=== PATIENT | male | born 1970 | race Caucasian/White ===

== ENCOUNTER 2018-03-17 13:45 | Emergency (ER) | payer SELFPAY ==
[2018-03-17 14:17] VITALS: TEMP 98.3
--- NOTE | 2018-03-17 16:09 | PDOC ---
Attending Attestation - HPI HPI: 03/17/18 20:19 The patient is a 47 year old female, with a significant PMH of cocaine abuse and ETOH, who presents to the emergency department who wishes to go to detox. The patient states he usually drinks 1 liter of vodka per day (today he drank 1 L of vodka) and currently endorses associated symptoms of tactile sensation, SOB, 1 episode of non bilious non bloody emesis, nausea and chest pain located to the center of the chest , non radiating in nature. The patient reports his last rehab admission was 8 years ago. The patient denies headache and dizziness. Denies fever, chills, diarrhea and constipation. Denies dysuria, frequency, urgency and hematuria. Allergies: NKDA Past surgical history: None reported Social history: Denies tobacco use but admits to cocaine use (last night) PCP: None reported Documentation prepared by Edinson Valles, acting as medical records specialist for Madiha Beltre MD. - Physicial Exam PE: 03/17/18 20:19 GENERAL: Awake, alert, and fully oriented, in no acute distress HEAD: No signs of trauma EYES: PERRLA, EOMI, sclera anicteric, conjunctiva clear ENT: +Tongue fasciculations. Auricles normal inspection, hearing grossly normal , nares patent, oropharynx clear without exudates. NECK: Normal ROM, supple, no lymphadenopathy, JVD, or masses LUNGS: Breath sounds equal, clear to auscultation bilaterally. No wheezes, and no crackles HEART: Regular rate and rhythm, normal S1 and S2, no murmurs, rubs or gallops ABDOMEN: Soft, nontender, normoactive bowel sounds. No guarding, no rebound. No masses EXTREMITIES: Normal range of motion, no edema. No clubbing or cyanosis. No cords, erythema, or tenderness NEUROLOGICAL: Cranial nerves II through XII grossly intact. Normal speech, normal gait SKIN: Warm, Dry, normal turgor, no rashes or lesions noted. Documentation prepared by Edinson Valles, acting as medical records specialist for Madiha Beltre MD. <Edinson Valles - Last Filed: 03/17/18 20:19> - Medical Decision Making 03/17/18 20:32 Pt presents to the ED complaining of chest pain after using cocaine and mild ETOH withdrawal. Labs and EKG checked to rule out ACS and are negative. Patient is now chest pain free. Patient is requesting transfer to [facility]. Case discussed with [facility] who has accepted the patient., <Madiha Beltre - Last Filed: 03/17/18 21:02>
--- NOTE | 2018-03-17 16:30 | PDOC ---
History of Present Illness <Jazmyne Goodrich - Last Filed: 03/17/18 20:51> - General History Source: Patient Exam Limitations: Language Barrier - History of Present Illness Initial Comments: 03/17/18 19:38 47 yo M with a hx of ETOH and cocaine abuse presents to the emergency department with a desire to go to detox. Per the patient, his last drink was at 12 pm today. In the 24 hours prior, he drank 1 liter of vodka. His usual alcohol amount is 1 liter of vodka per day. He states he currently has tremors, nausea, and anxiety. Denies a hx of seizures, AH/VH/tactile hallucination, DTs, and anger. Concurrently, he developed chest pain at 12 pm that was located in the center of the chest, constant, 3/10, prickling sensation, without radiation , without aggravating and relieving factors with associative SOB. His last rehab admission was 8 years ago. He states he wants to go to detox this time because he can't do it alone. He states he had 1x vomiting episode earlier today that was NBNB. Denies the following: fever, chills, visual changes, headache, abdominal pain, dysuria, hematuria, diarrhea, hematochezia, and leg pain/swelling. Shx: None Meds: None Allergies: NKDA Social: Denies tobacco use. Last cocaine use last night. Uses cocaine intermittently when he drinks. <Cholo Colunga - Last Filed: 03/19/18 11:37> - General Chief Complaint: Alcohol intoxication Stated Complaint: ALCOHOL INTOXICATION Time Seen by Provider: 03/17/18 16:09 Past History <Jazmyne Goodrich - Last Filed: 03/17/18 20:51> - Past Medical History COPD: No - Immunization History Immunization Up to Date: Yes - Suicide/Smoking/Psychosocial Hx Smoking History: Never smoked Hx Alcohol Use: Yes (1 L vodka a day) Drug/Substance Use Hx: Yes (cocainne) <Cholo Colunga - Last Filed: 03/19/18 11:37> - Past Medical History Allergies/Adverse Reactions: Allergies Allergy/AdvReac Type Severity Reaction Status Date / Time No Known Allergies Allergy Verified 03/18/18 01:26 Home Medications: Ambulatory Orders NK [No Known Home Medication] 03/17/18 Review of Systems - Review of Systems Able to Perform ROS?: Yes Is the patient limited [place] proficient: No Constitutional: No: Chills, Diaphoresis, Fever HEENTM: No: Eye Pain, Recent change in vision, Ear Pain, Nose Pain, Throat Pain , Mouth Pain Respiratory: No: Cough, Shortness of Breath, Hemoptysis Cardiac (ROS): No: Chest Pain, Lightheadedness, Palpitations, Syncope, Chest Tightness ABD/GI: Yes: Nausea. No: Constipated, Diarrhea, Poor Appetite, Poor Fluid Intake, Rectal Bleeding, Vomiting, Tarry Stools : No: Burning, Dysuria, Hematuria, Urgency Musculoskeletal: No: Back Pain, Gout, Joint Pain, Neck Pain Integumentary: No: Dryness, Lesions, Lumps, Sweating Neurological: Yes: Tremors. No: Headache, Numbness, Tingling, Ataxia, Dizziness Psychiatric: No: Stressors Endocrine: No: Unexplained Weight Gain Hematologic/Lymphatic: No: Anemia <Cholo Colunga - Last Filed: 03/19/18 11:37> *Physical Exam - Vital Signs Last Vital Signs Temp Pulse Resp BP Pulse Ox 98.3 F 89 18 126/68 98 03/17/18 14:11 03/17/18 19:10 03/17/18 19:10 03/17/18 19:10 03/17/18 19:10 <Jazmyne Goodrich - Last Filed: 03/17/18 20:51> - Vital Signs Last Vital Signs Temp Pulse Resp BP Pulse Ox 98.3 F 93 H 18 124/79 96 03/17/18 14:11 03/17/18 14:11 03/17/18 14:11 03/17/18 14:11 03/17/18 14:11 - Physical Exam General Appearance: Yes: Nourished, Appropriately Dressed, Other (tremors ). No : Apparent Distress, Disheveled HEENT: positive: EOMI, DHEERAJ, Normal Voice, Symmetrical, Pharynx Normal, Hearing Grossly Normal. negative: Pale Conjunctivae, Scleral Icterus (R), Scleral Icterus (L), Muffled/Hoarse voice, Nasal Congestion, Sinus Tenderness, Excessive drooling Neck: positive: Trachea midline. negative: Tender, Lymphadenopathy (R), Lymphadenopathy (L), Tender lateral, Tender midline Respiratory/Chest: positive: Chest Tender, Lungs Clear, Normal Breath Sounds. negative: Respiratory Distress, Accessory Muscle Use, Crackles, Rales, Rhonchi, Stridor, Wheezing Cardiovascular: positive: Regular Rhythm, Regular Rate, S1, S2. negative: Systolic Murmur Gastrointestinal/Abdominal: positive: Normal Bowel Sounds, Flat, Soft. negative : Tender, Distended Lymphatic: negative: Adenopathy Musculoskeletal: positive: Normal Inspection. negative: CVA Tenderness, Vertebral Tenderness Extremity: positive: Normal Capillary Refill, Normal Inspection, Normal Range of Motion. negative: Tender Integumentary: positive: Normal Color, Dry, Warm. 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 negative: EOM Palsy, Facial Droop , Sensory Deficit <Cholo Colunga - Last Filed: 03/19/18 11:37> Moderate Sedation - Procedure Monitoring Vital Signs: Procedure Monitoring Vital Signs Temperature 98.3 F 03/17/18 14:11 Pulse Rate 89 03/17/18 19:10 Respiratory Rate 18 03/17/18 19:10 Blood Pressure 126/68 03/17/18 19:10 O2 Sat by Pulse Oximetry (%) 98 03/17/18 19:10 <Jazmyne Goodrich - Last Filed: 03/17/18 20:51> - Procedure Monitoring Vital Signs: Procedure Monitoring Vital Signs Temperature 98.3 F 03/17/18 14:11 Pulse Rate 93 H 03/17/18 14:11 Respiratory Rate 18 03/17/18 14:11 Blood Pressure 124/79 03/17/18 14:11 O2 Sat by Pulse Oximetry (%) 96 03/17/18 14:11 <Cholo Colunga - Last Filed: 03/19/18 11:37> ED Treatment Course - LABORATORY CBC & Chemistry Diagram: 03/17/18 17:45 03/17/18 17:45 - ADDITIONAL ORDERS Additional order review: Laboratory Results 03/17/18 03/17/18 03/17/18 17:45 17:45 17:45 Sodium 140 Potassium 4.0 Chloride 104 Carbon Dioxide 30 Anion Gap 6 L BUN 8 Creatinine 0.8 Creat Clearance w eGFR > 60 Random Glucose 108 H Calcium 8.6 Total Bilirubin 0.7 AST 61 H ALT 82 H Alkaline Phosphatase 85 Creatine Kinase 148 Troponin I < 0.02 Total Protein 8.2 Albumin 4.4 Urine Color Yellow Urine Appearance Clear Urine pH 7.0 D Ur Specific [place] 1.023 Urine Protein Negative Urine Glucose (UA) Negative Urine Ketones Negative Urine Blood Negative Urine Nitrite Negative Urine Bilirubin Negative Urine Urobilinogen 2.0 Ur Leukocyte Esterase Negative Opiates Screen Negative Methadone Screen Negative Barbiturate Screen Negative Phencyclidine Screen Negative Ur Amphetamines Screen Negative MDMA (Ecstasy) Screen Negative Benzodiazepines Screen Negative Cocaine Screen Positive A* U Marijuana (THC) Screen Negative Alcohol, Quantitative < 3.0 03/17/18 17:45 RBC 4.61 MCV 90.2 MCHC 36.0 H RDW 13.0 MPV 7.4 L Neutrophils % 76.1 Lymphocytes % 16.2 D Monocytes % 6.1 Eosinophils % 1.2 D Basophils % 0.4 - Medications Given in the ED: ED Medications Discontinued Medications Generic Name Dose Route Start Last Admin Trade Name Freq PRN Reason Stop Dose Admin Chlordiazepoxide HCl 50 mg 03/17/18 17:34 03/17/18 18:26 Librium - PO 03/17/18 17:35 50 mg ONCE ONE Administration <Jazmyne Goodrich - Last Filed: 03/17/18 20:51> - LABORATORY CBC & Chemistry Diagram: 03/17/18 17:45 03/17/18 17:45 <Cholo Colunga - Last Filed: 03/19/18 11:37> Medical Decision Making - Medical Decision Making 47 yo M with a hx of ETOH and cocaine abuse presents to the emergency department with a desire to go to detox. Per the patient, his last drink was at 12 pm today. Initial vitals: Initial Vital Signs Temp Pulse Resp BP Pulse Ox 98.3 F 93 H 18 124/79 96 03/17/18 14:11 03/17/18 14:11 03/17/18 14:11 03/17/18 14:11 03/17/18 14:11 Work up: ddx: alcohol withdrawal. concerns for chest pain given his recent use of cocaine yesterday and prolonged use of it. will get cbc, cmp, trops, urine analysis, urine tox, etoh levels, ekg, and cxr. Laboratory Tests 03/17/18 03/17/18 03/17/18 17:45 17:45 17:45 WBC 5.2 RBC 4.61 Hgb 15.0 Hct 41.6 MCV 90.2 MCH 32.4 MCHC 36.0 H RDW 13.0 Plt Count 159 MPV 7.4 L Absolute Neuts (auto) 4.0 Neutrophils % 76.1 Lymphocytes % 16.2 D Monocytes % 6.1 Eosinophils % 1.2 D Basophils % 0.4 Nucleated RBC % 0 Sodium 140 Potassium 4.0 Chloride 104 Carbon Dioxide 30 Anion Gap 6 L BUN 8 Creatinine 0.8 Creat Clearance w eGFR > 60 Random Glucose 108 H Calcium 8.6 Total Bilirubin 0.7 AST 61 H ALT 82 H Alkaline Phosphatase 85 Creatine Kinase 148 Troponin I < 0.02 Total Protein 8.2 Albumin 4.4 Urine Color Yellow Urine Appearance Clear Urine pH 7.0 D Ur Specific [place] 1.023 Urine Protein Negative Urine Glucose (UA) Negative Urine Ketones Negative Urine Blood Negative Urine Nitrite Negative Urine Bilirubin Negative Urine Urobilinogen 2.0 Ur Leukocyte Esterase Negative Opiates Screen Methadone Screen Barbiturate Screen Phencyclidine Screen Ur Amphetamines Screen MDMA (Ecstasy) Screen Benzodiazepines Screen Cocaine Screen U Marijuana (THC) Screen Alcohol, Quantitative < 3.0 03/17/18 17:45 WBC RBC Hgb Hct MCV MCH MCHC RDW Plt Count MPV Absolute Neuts (auto) Neutrophils % Lymphocytes % Monocytes % Eosinophils % Basophils % Nucleated RBC % Sodium Potassium Chloride Carbon Dioxide Anion Gap BUN Creatinine Creat Clearance w eGFR Random Glucose Calcium Total Bilirubin AST ALT Alkaline Phosphatase Creatine Kinase Troponin I Total Protein Albumin Urine Color Urine Appearance Urine pH Ur Specific [place] Urine Protein Urine Glucose (UA) Urine Ketones Urine Blood Urine Nitrite Urine Bilirubin Urine Urobilinogen Ur Leukocyte Esterase Opiates Screen Negative Methadone Screen Negative Barbiturate Screen Negative Phencyclidine Screen Negative Ur Amphetamines Screen Negative MDMA (Ecstasy) Screen Negative Benzodiazepines Screen Negative Cocaine Screen Positive A* U Marijuana (THC) Screen Negative Alcohol, Quantitative CXR did not show infiltrates or widened mediastinum. labs were within normal limits. trops were negative. urine toxicology showed positive cocaine. patient again re-iterated his desire to go to detox. he was given 50 mg of librium. Patient's alcohol level was <3. [facility] was contacted and they accepted the patient for admission. will transfer the patient via security. Dispo: Discharge <Cholo Colunga - Last Filed: 03/19/18 11:37> *DC/Admit/Observation/Transfer <Jazmyne Goodrich - Last Filed: 03/17/18 20:51> <Cholo Colunga - Last Filed: 03/19/18 11:37> Diagnosis at time of Disposition: Alcohol abuse - Discharge Dispostion Disposition: HOME Condition at time of disposition: Stable - Patient Instructions Printed Discharge Instructions: DI for Alcohol Abuse Additional Instructions: Present to [facility] for detox
[2018-03-17] MEDS ORDERED: chlordiazePOXIDE HCL 25 MG CAPSULE PO ONE (17:34)
[2018-03-17 18:14] LABS: BASO % 0.4 % (0-2.0); EOS % 1.2 % (0-4.5); HEMATOCRIT 41.6 % (35.4-49); LYMPH % 16.2 % (8-40); MCH 32.4 pg (25.7-33.7); MEAN CELL VOLUME 90.2 fl (80-96); MEAN PLT VOLUME 7.4 fl (7.5-11.1); MONO % 6.1 % (3.8-10.2); NEUT % 76.1 % (42.8-82.8); PLATELET COUNT 159 K/MM3 (134-434); RBC 4.61 M/mm3 (4.00-5.60); URINE APPEARANCE CLEAR; URINE BILIRUBIN NEGATIVE (<2.0 mg/dL); URINE COLOR YELLOW; URINE GLUCOSE (UA) NEGATIVE (NEGATIVE); URINE KETONE NEGATIVE (NEGATIVE); URINE LEUK ESTERASE NEGATIVE (NEGATIVE); URINE NITRITE NEGATIVE (NEGATIVE); URINE PROTEIN NEGATIVE (NEGATIVE); WHITE BLOOD COUNT 5.2 K/mm3 (4.0-10.0)
[2018-03-17] MEDS ORDERED: chlordiazePOXIDE HCL 25 MG CAPSULE ONE (18:29)
[2018-03-17 19:04] LABS: METHADONE, UR NEGATIVE ng/ml (CUTOFF=300); OPIATES, URI NEGATIVE ng/ml (CUTOFF=300); PHENCYCLIDINE,URINE NEGATIVE ng/ml (CUTOFF=25); URINE AMPHETAMINES NEGATIVE ng/ml (CUTOFF=500); URINE BARBITURATES NEGATIVE ng/ml (CUTOFF=200); URINE BENZODIAZEPINES NEGATIVE ng/ml (CUTOFF=200)
[2018-03-17 19:06] LABS: COCAINE, UR POSITIVE ng/ml (CUTOFF=300)
[2018-03-17 19:08] LABS: ALBUMIN 4.4 g/dl (3.4-5.0); ALK PHOS 85 U/L (45-117); ANION GAP 6 MMOL/L (8-16); BILIRUBIN,TOTAL 0.7 mg/dL (0.2-1); BLOOD UREA NITROGEN 8 mg/dL (7-18); CALCIUM 8.6 mg/dL (8.5-10.1); CHLORIDE 104 mmol/L (98-107); CO2 30 mmol/L (21-32); CREATININE 0.8 mg/dL (0.55-1.3); GLUCOSE,RANDOM 108 mg/dL (74-106); SGOT/AST 61 U/L (15-37); SGPT/ALT 82 U/L (13-61); SODIUM 140 mmol/L (136-145); TOT PROT 8.2 g/dl (6.4-8.2)
[2018-03-17 19:56] VITALS: BP 126/68; PULSE 89
--- NOTE | 2018-03-18 07:13 | EKG ---
Test Reason : Blood Pressure : / mmHG Vent. Rate : 081 BPM Atrial Rate : 081 BPM P-R Int : 148 ms QRS Dur : 098 ms QT Int : 384 ms P-R-T Axes : 050 -11 021 degrees QTc Int : 446 ms NORMAL SINUS RHYTHM NORMAL ECG WHEN COMPARED WITH ECG OF 24-APR-2016 20:19, NO SIGNIFICANT CHANGE WAS FOUND Confirmed by NURY HENRIQUEZ MD ([id number]) on 03/18/2018 7:13:12 AM Referred By: Confirmed By:NURY HENRIQUEZ MD
== END 2018-03-17 23:36 | disposition home or self-care (01) ==
LOC: JER 13:45
DX: F10.10 Alcohol abuse, uncomplicated (principal); F14.10 Cocaine abuse, uncomplicated
CPT/HCPCS: 36415; 71046-TC-FY; 80053; 80307; 81003; 82550; 84484; 85025; 93005; 93010; 99283-25

== ENCOUNTER 2018-03-17 23:54 | Inpatient (IN) | payer SELFPAY ==
--- NOTE | 2018-03-18 00:27 | HP ---
CIWA Score Nausea/Vomitin (x 1) Muscle Tremors: 3 Anxiety: 3 Agitation: 0-Normal Activity Paroxysmal Sweats: 1-Minimal Palms Moist Orientation: 1-Uncertain about Date Tacttile Disturbances: 0-None Auditory Disturbances: 0-None Visual Disturbances: 0-None Headache: 3-Moderate CIWA-Ar Total Score: 14 - Admission Criteria OASAS Guidelines: Admission for Medically Managed Detox: Requires at least one of the followin. CIWA greater than 12 2. Seizures within the past 24 hours 3. Delirium tremens within the past 24 hours 4. Hallucinations within the past 24 hours 5. Acute intervention needed for co occurring medical disorder 6. Acute intervention needed for co occurring psychiatric disorder 7. Severe withdrawal that cannot be handled at a lower level of care (continued vomiting, continued diarrhea, abnormal vital signs) requiring intravenous medication and/or fluids 8. Admission ROS S - HPI Chief Complaint: Alcohol withdrawal symptoms Allergies/Adverse Reactions: Allergies Allergy/AdvReac Type Severity Reaction Status Date / Time No Known Allergies Allergy Verified 03/17/18 14:11 History of Present Illness: 47 years old male who denies past medical history is seeking admission to detox. Patient states that his last detox was eight years ago in an a facility in the [place] and reports insignificant period of sobriety. He denies suicide attempt or suicidal ideation at this time. Exam Limitations: No Limitations - Ebola screening Have you traveled outside of the country in the last 21 days: No Have you had contact with anyone from an Ebola affected area: No Have you been sick,other than usual withdrawal symptoms: No Do you have a fever: No - Review of Systems Constitutional: Chills, Loss of Appetite, Malaise, Night Sweats, Changes in sleep EENT: reports: No Symptoms Reported Respiratory: reports: No Symptoms reported Cardiac: reports: No Symptoms Reported GI: reports: Poor Appetite, Poor Fluid Intake, Vomiting (x 1), Abdominal cramping : reports: No Symptoms Reported Musculoskeletal: reports: Back Pain, Muscle Pain, Muscle Weakness Integumentary: reports: Dryness Neuro: reports: Tremors Endocrine: reports: No Symptoms Reported Hematology: reports: No Symptoms Reported Psychiatric: reports: Mood/Affect Appropiate Other Systems: Reviewed and Negative Patient History - Patient Medical History Hx Anemia: No Hx Asthma: No Hx Chronic Obstructive Pulmonary Disease (COPD): No Hx Cancer: No Hx Cardiac Disorders: No Hx Congestive Heart Failure: No Hx Hypertension: No Hx Hypercholesterolemia: No Hx Pacemaker: No HX Cerebrovascular Accident: No Hx Seizures: No Hx Dementia: No Hx Diabetes: No Hx Gastrointestinal Disorders: No Hx Liver Disease: No Hx Genitourinary Disorders: No Hx Sexually Transmitted Disorders: No Hx Renal Disease (ESRD): No Hx Thyroid Disease: No Hx Human Immunodeficiency Virus (HIV): No (Negative ) Hx Hepatitis C: No Hx Depression: No Hx Suicide Attempt: No (Denies suicidal ideation at this time) Hx Bipolar Disorder: No Hx Schizophrenia: No - Patient Surgical History Past Surgical History: No - PPD History Previous Implant?: Yes (Patient reports PPD positive 9 years ago and does not remember if treated) Documented Results: Positive w/o proof PPD to be Administered?: No - Reproductive History Patient is a Female of Child Bearing Age (11 -55 yrs old): No (MALE) - Smoking Cessation Smoking history: Never smoked Have you smoked in the past 12 months: No Hx Chewing Tobacco Use: No Initiated information on smoking cessation: No - Substance & Tx. History Hx Alcohol Use: Yes Hx Substance Use: Yes Substance Use Type: Alcohol, Cocaine Hx Substance Use Treatment: Yes (Does not remember treatment facility in the [place] years ago) - Substances Abused Alcohol Route: Oral Frequency: Daily Amount used: VODKA - 1 LITER Age of first use: 24 Date of Last Use: 03/17/18 Cocaine Route: Smoking Frequency: Daily Amount used: $20- $50 DAILY Age of first use: 32 Date of Last Use: 03/17/18 Family Disease History - Family Disease History Family History: Denies Admission Physical Exam [facility] - Physical General Appearance: Yes: Moderate Distress, Irritable, Anxious HEENTM: Yes: EOMI, Normal ENT Inspection, Normal Voice, DHEERAJ Respiratory: Yes: Lungs Clear, Normal Breath Sounds, No Respiratory Distress Neck: Yes: Supple Breast: Yes: Breast Exam Deferred Cardiology: Yes: Regular Rhythm, Regular Rate Abdominal: Yes: Normal Bowel Sounds, Soft Genitourinary: Yes: Within Normal Limits Back: Yes: Normal Inspection Musculoskeletal: Yes: Back pain, Joint swelling, Muscle Pain Extremities: Yes: Tremors 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, 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, Normal Mood/Affect Integumentary: Yes: Within Normal Limits Lymphatic: Yes: Within Normal Limits - Diagnostic (1) Alcohol dependence with uncomplicated withdrawal Current Visit: Yes Status: Chronic (2) Cocaine dependence Current Visit: Yes Status: Chronic Qualifiers: Substance use status: uncomplicated Qualified Code(s): F14.20 - Cocaine dependence, uncomplicated (3) Lobar pneumonia Current Visit: Yes Status: Chronic Cleared for Admission [facility] - Detox or Rehab [facility] Level of Care: Medically Managed Detox Regimen/Protocol: Librium Vital Signs - Vital Signs Vital Signs Refused: No Temperature: 97.6 F Temperature Source: Oral Pulse Rate: 78 Respiratory Rate: 18 Blood Pressure: 144/90 BP Location: Left Arm Blood Pressure Position: Sitting - Height Height: 5 ft 5 in - Weight Weight: 190 lb Weight Measurement Method: Standing Scale Body Mass Index (BMI): 31.6 - Bowel Function Bowel Movement: Yes Urine Drug Screen - Test Device Lot Number: [id number] Expiration Date: 07/24/19 - Control Is Test Valid: Yes - Results Drug Screen Negative: No Urine Drug Screen Results: VEL-Cocaine, BZO-Benzodiazepines (TRANSFERRED FROM [facility])
[2018-03-18] MEDS ORDERED: IBUPROFEN 400 MG TABLET (FP) PO PRN (00:48)
[2018-03-18] MEDS ORDERED: MAGNESIUM CITRATE 300 ML BOTTLE PO PRN (00:48)
[2018-03-18] MEDS ORDERED: MAGNESIUM HYDROX 2400MG/30ML ORAL SUSPENSION 30 ML CUP PO PRN (00:48)
[2018-03-18] MEDS ORDERED: MENTHOL/PHENOL 1 EACH UD MM PRN (00:48)
[2018-03-18] MEDS ORDERED: chlordiazePOXIDE HCL 25 MG CAPSULE PO PRN (00:48)
[2018-03-18] MEDS ORDERED: MAG HYDROX/AL HYDROX/SIMETH 30 ML UNIT-DOSE CUP PO PRN (00:48)
[2018-03-18] MEDS ORDERED: guaiFENesin/D-METHORPHAN HB 10 ML UNIT-DOSE CUPS PO PRN (00:48)
[2018-03-18] MEDS ORDERED: P-EPHED 60MG/TRIPROLIDI 2.5MG TABLET PO PRN (00:48)
[2018-03-18] MEDS ORDERED: LOPERAMIDE HCL 2 MG CAPSULE PO PRN (00:48)
[2018-03-18] MEDS ORDERED: ACETAMINOPHEN 325 MG TABLET (FP) PO PRN (00:48)
[2018-03-18 00:55] VITALS: BMI 31.6
[2018-03-18] MEDS: chlordiazePOXIDE HCL 25 MG CAPSULE PO SCH ×4 (05:33→22:21)
[2018-03-18] MEDS: PRENATAL VITAMINS W/ FOLIC ACID TABLET (FP) PO SCH (10:09)
[2018-03-18] MEDS ORDERED: FLU VACCINE QUAD 60 MCG/0.5 ML (MDV 18-19) IM ONE (12:00)
--- NOTE | 2018-03-18 18:25 | PN ---
[facility] CIWA - CIWA Score Nausea/Vomitin-No Nausea/No Vomiting Muscle Tremors: 3 Anxiety: 4-Mod. Anxious/Guarded Agitation: 3 Paroxysmal Sweats: 2 Orientation: 0-Oriented Tacttile Disturbances: 0-None Auditory Disturbances: 0-None Visual Disturbances: 0-None Headache: 0-None Present CIWA-Ar Total Score: 12 S Progress Note (SOAP) Subjective: sleep disturbance sweats cold Objective: 03/18/18 18:23 A & O x 3 Anxious Laboratory Last Values HIV 1&2 Antibody Screen Negative 03/18/18 07:45 HIV P24 Antigen Negative 03/18/18 07:45 Assessment: 03/18/18 18:24 withdrawal sx Labs pending Plan: continue detox Labs/UA
[2018-03-18] MEDS ORDERED: MELATONIN 5 MG TABLETS PO PRN (22:00)
[2018-03-18] MEDS: THIAMINE HCL 100 MG TABLET (FP) PO SCH (22:20)
[2018-03-19] MEDS: chlordiazePOXIDE HCL 25 MG CAPSULE PO SCH ×4 (05:36→22:33)
[2018-03-19] MEDS: PRENATAL VITAMINS W/ FOLIC ACID TABLET (FP) PO SCH (10:18)
--- NOTE | 2018-03-19 15:29 | PN ---
S CIWA - CIWA Score Nausea/Vomitin-Mild Nausea/No Vomiting Muscle Tremors: 3 Anxiety: 3 Agitation: 3 Paroxysmal Sweats: 3 Orientation: 0-Oriented Tacttile Disturbances: 0-None Auditory Disturbances: 0-None Visual Disturbances: 0-None Headache: 0-None Present CIWA-Ar Total Score: 13 S Progress Note (SOAP) Subjective: Anxious, interrupted sleep, feeling tired Objective: 03/19/18 15:27 Last Vital Signs Temp Pulse Resp BP Pulse Ox 97.0 F L 78 18 113/68 03/19/18 13:28 03/19/18 13:28 03/19/18 13:28 03/19/18 13:28 Laboratory Tests 03/18/18 03/19/18 07:45 08:00 RPR Titer Nonreactive HIV 1&2 Antibody Screen Negative HIV P24 Antigen Negative Labs reviewed: CBC, CMP, RPR results within normal limits Assessment: 03/19/18 15:29 Withdrawal symptoms Plan: Continue detox Encouraged PO water intake
[2018-03-19] MEDS: THIAMINE HCL 100 MG TABLET (FP) PO SCH (22:33)
[2018-03-20] MEDS: chlordiazePOXIDE 5 MG CAPSULE PO SCH ×4 (06:01→22:08)
[2018-03-20] MEDS: PRENATAL VITAMINS W/ FOLIC ACID TABLET (FP) PO SCH (10:37)
--- NOTE | 2018-03-20 15:12 | PN ---
[facility] Progress Note (SOAP) Subjective: Diarrhea. Objective: PATIENT A & O X 3, OBSERVED AMBULATING ON UNIT. NO ACUTE DISTRESS. 03/20/18 15:10 Vital Signs Temperature 96.9 F L 03/20/18 13:33 Pulse Rate 80 03/20/18 13:33 Respiratory Rate 18 03/20/18 13:33 Blood Pressure 132/80 03/20/18 13:33 O2 Sat by Pulse Oximetry (%) Laboratory Tests 03/18/18 03/19/18 07:45 08:00 RPR Titer Nonreactive HIV 1&2 Antibody Screen Negative HIV P24 Antigen Negative LABS NOTED. Assessment: 03/20/18 15:11 WITHDRAWAL SYMPTOMS. Plan: CONTINUE DETOX.
[2018-03-20] MEDS: THIAMINE HCL 100 MG TABLET (FP) PO SCH (22:08)
[2018-03-21] MEDS ORDERED: chlordiazePOXIDE HCL 10 MG CAPSULE PO SCH (05:00)
[2018-03-21 09:15] VITALS: BP 115/67; PULSE 83; TEMP 97
--- NOTE | 2018-03-21 11:05 | DS ---
[facility] Detox Discharge Summary Admission Date: 03/18/18 Discharge Date: 03/21/18 - History Present History: Alcohol Dependence Additional Comments: 47 years old male admitted on 03/18/18 for alcohol withdrawal stabilization preferred begin chemical rehab today that he wants to attend community self help group services alert no acute distress - Physical Exam Results Vital Signs: Vital Signs Temperature 97.0 F L 03/21/18 09:13 Pulse Rate 83 03/21/18 09:13 Respiratory Rate 18 03/21/18 09:13 Blood Pressure 115/67 03/21/18 09:13 O2 Sat by Pulse Oximetry (%) Pertinent Admission Physical Exam Findings: alcohol withdrawal sx Laboratory Last Values RPR Titer Nonreactive (NONREACTIVE) 03/19/18 08:00 HIV 1&2 Antibody Screen Negative 03/18/18 07:45 HIV P24 Antigen Negative 03/18/18 07:45 Laboratory Last Values see ER lab results - Treatment Hospital Course: Detox Protocol Followed, Detoxed Safely, Responded well, Discharged Condition Good, Rehab Referral Accepted Patient has Accepted a Rehab Referral to: [facility] - Medication Discharge Medications: Ambulatory Orders NK [No Known Home Medication] 03/17/18 - Diagnosis (1) Alcohol dependence with uncomplicated withdrawal Current Visit: Yes Status: Acute (2) PPD positive Current Visit: Yes Status: Resolved - AMA Did Patient Leave Against Medical Advice: No
== END 2018-03-21 09:15 | disposition home or self-care (01) | DRG 774 ==
LOC: YASAS 23:54 → Y3N 03-18 01:03
PROC: HZ2ZZZZ Detoxification Services for Substance Abuse Treatment (ICD-10-PCS; principal; 2018-03-18)
DX: F10.230 Alcohol dependence with withdrawal, uncomplicated (principal); F14.20 Cocaine dependence, uncomplicated; R76.11 Nonspecific reaction to tuberculin skin test without active tuberculosis
CPT/HCPCS: 36415; 71046-TC-FY; 86593; 87389; 90688; G0008

== ENCOUNTER 2020-04-16 16:50 | Emergency (ER) | payer SELFPAY ==
[2020-04-16 17:09] VITALS: BMI 28.3
[2020-04-16 18:32] LABS: BASO % 0.4 % (0-2.0); EOS % 0.5 % (0-4.5); HEMATOCRIT 38.6 % (35.4-49); HEMOGLOBIN 13.6 GM/dL (11.7-16.9); LYMPH % 14.6 % (8-40); MCHC 35.1 g/dl (32.0-35.9); MEAN PLT VOLUME 7.7 fl (7.5-11.1); MONO % 6.6 % (3.8-10.2); NEUT % 77.9 % (42.8-82.8); PLATELET COUNT 157 K/MM3 (134-434); RBC 4.24 M/mm3 (4.00-5.60); WHITE BLOOD COUNT 6.8 K/mm3 (4.0-10.0)
[2020-04-16 18:51] LABS: CHLORIDE 102 mmol/L (98-107); POTASSIUM 3.3 mmol/L (3.5-5.1); SODIUM 136 mmol/L (136-145)
[2020-04-16 18:53] LABS: ALBUMIN 4.2 g/dl (3.4-5.0); ANION GAP 5 MMOL/L (8-16); BLOOD UREA NITROGEN 14.4 mg/dL (7-18); CALCIUM 9.2 mg/dL (8.5-10.1); CO2 28 mmol/L (21-32); GLUCOSE,RANDOM 107 mg/dL (74-106)
[2020-04-16 18:56] LABS: CREATININE 0.8 mg/dL (0.55-1.3); SGOT/AST 19 U/L (15-37); SGPT/ALT 29 U/L (13-61)
[2020-04-16 18:58] LABS: BILIRUBIN,TOTAL 0.4 mg/dL (0.2-1); TOT PROT 7.7 g/dl (6.4-8.2)
[2020-04-16 18:59] LABS: ALK PHOS 96 U/L (45-117)
[2020-04-16] MEDS ORDERED: POTASSIUM CHLORIDE TABS 20 MEQ TABLET.ER (FP) PO ONE ×2 (19:17→19:46)
[2020-04-16] MEDS ORDERED: ACETAMINOPHEN 325 MG TABLET (FP) PO ONE (19:18)
[2020-04-16 19:44] VITALS: BP 116/70; PULSE 89; TEMP 98.8
[2020-04-16] MEDS ORDERED: ACETAMINOPHEN 325 MG TABLET (FP) ONE (19:46)
[2020-04-16] MEDS ORDERED: METOCLOPRAMIDE HCL INJECTION 10 MG/2 ML VIAL IVPUSH ONE (20:29)
[2020-04-16] MEDS ORDERED: METOCLOPRAMIDE HCL INJECTION 10 MG/2 ML VIAL ONE (20:35)
== END 2020-04-16 21:47 | disposition home or self-care (01) ==
LOC: JER 16:50
PROC: 3E033NZ Introduction of Analgesics, Hypnotics, Sedatives into Peripheral Vein, Percutaneous Approach (ICD-10-PCS; principal; 2020-04-16)
DX: R07.9 Chest pain, unspecified (principal)
CPT/HCPCS: 36415; 71046-TC-FY; 80053; 82550; 84484; 85025; 93005; 93010; 99285-25